=== PATIENT | male | born 1995 | race Caucasian/White ===

== ENCOUNTER 2022-10-05 21:28 | Emergency (ER) | payer OTHER, SELFPAY ==
[2022-10-05] VITALS (7 sets, daily range): BP systolic 125–139; BP diastolic 74–90; PULSE 64–92; RESP 10–31; TEMP 36.8–37.2; O2SAT 69–100; BMI 31.1
[2022-10-05] MEDS: Morphine 4 MG/ML Syringe IV ×2 (21:48→22:12)
--- NOTE | 2022-10-05 21:51 | ED.VIS.LOWEX ---
HPI History of Present Illness Chief Complaint: Lower Extremity Injury Narrative Narrative: Patient presents with injury to his left ankle that he sustained just prior to arrival. He states he was playing basketball, went up for a lay up, and landed incorrectly onto his left ankle. According to EMS, he has obvious deformity and fracture dislocation of his left ankle but still has good pulses and color. He was unable to ambulate. He denies hitting his head or loss of consciousness or other injury. He received 200 mcg of fentanyl intravenously prior to arrival. He denies any knee pain. PFSH PFS Medical History no medical history Home Medications cefadroxil 500 mg capsule 500 mg PO BID #20 caps 10/05/22 [Rx Last Taken Unknown] oxycodone 5 mg tablet 5 mg PO Q6H PRN pain 3 days #12 tabs 10/05/22 [Rx Last Taken Unknown] Allergy/AdvReac Type Severity Reaction Status Date / Time No Known Allergies Allergy Verified 10/05/22 21:48 Surgical History no surgical history Social History Smoking Status: Never smoker ROS ROS ED ROS Narrative Constitutional: No fever, no chills. HEENT: No sore throat. No neck pain. No loss of vision. No rhinorrhea. Cardiovascular: No chest pain. No palpitations. No pedal edema. Respiratory: No cough, no shortness of breath. Abdominal: No abdominal pain. No nausea. No vomiting. Genitourinary: No dysuria. No hematuria. Musculoskeletal: No myalgias. Left ankle pain and deformity. Neurologic: No headaches. No dizziness. No lightheadedness. Skin: No rash. No change in color. Psychiatric: No depression. No anxiety. EXAM Physical Exam Narrative Exam Narrative: Afebrile. Vital signs noted. HEENT: Normocephalic. Atraumatic. PERRL, EOMI. Neck soft and supple. No point tenderness or step off. Cardiovascular: Regular rate and rhythm. No murmurs, rubs, or gallops appreciated. Respiratory: No tachypnea. Lungs clear to auscultation bilaterally. Gastrointestinal: Abdomen soft, nontender, with normoactive bowel sounds. No rebound or guarding. Neurological: Awake. Alert. Nonfocal, nonlateralizing. Skin: No rash. Normal color. No pallor. Musculoskeletal: No pedal edema. Positive dislocation of left ankle with external rotation of left foot. Good capillary refill. Palpable dorsalis pedis pulse. No proximal fibular head tenderness. Const Vital Signs: 10/05/22 21:30 10/05/22 22:19 10/05/22 22:42 Temperature 98.2 F 99 F Temperature Source Temporal Pulse Rate 64 70 Pulse Rate [1 (Initial Baseline)] Pulse Rate [2] Pulse Rate [3] Pulse Rate [4] Pulse Rate [5] Pulse Rate [6] Respiratory Rate 18 31 H Respiratory Rate [1 (Initial Baseline)] Respiratory Rate [2] Respiratory Rate [3] Respiratory Rate [4] Respiratory Rate [5] Respiratory Rate [6] Blood Pressure 125/74 H 138/86 H Blood Pressure [1 (Initial Baseline)] Blood Pressure [3] Blood Pressure [4] Blood Pressure [5] Blood Pressure [6] Blood Pressure Mean 91 Pulse Ox 99 100 Oxygen Delivery Method Room Air Nasal Cannula Oxygen Delivery Method [1 (Initial Baseline)] Oxygen Delivery Method [2] Oxygen Delivery Method [3] Oxygen Delivery Method [4] Oxygen Delivery Method [5] Oxygen Delivery Method [6] Oxygen Flow Rate (L/min) 4 Oxygen Flow Rate (L/min) [3] Oxygen Flow Rate (L/min) [4] Oxygen Flow Rate (L/min) [5] Oxygen Flow Rate (L/min) [6] 10/05/22 22:45 10/05/22 22:48 10/05/22 22:30 Temperature Temperature Source Pulse Rate Pulse Rate [1 (Initial Baseline)] 76 Pulse Rate [2] 70 Pulse Rate [3] 92 Pulse Rate [4] 80 Pulse Rate [5] 70 Pulse Rate [6] 73 Respiratory Rate Respiratory Rate [1 (Initial Baseline)] 19 H Respiratory Rate [2] 22 H Respiratory Rate [3] 10 L Respiratory Rate [4] 21 H Respiratory Rate [5] 22 H Respiratory Rate [6] 20 H Blood Pressure Blood Pressure [1 (Initial Baseline)] 138/88 H Blood Pressure [3] 125/90 H Blood Pressure [4] 125/89 H Blood Pressure [5] 130/86 H Blood Pressure [6] 139/88 H Blood Pressure Mean Pulse Ox Oxygen Delivery Method Room Air Room Air Oxygen Delivery Method [1 (Initial Baseline)] Room Air Oxygen Delivery Method [2] Room Air Oxygen Delivery Method [3] Non-Rebreather Oxygen Delivery Method [4] Non-Rebreather Oxygen Delivery Method [5] Non-Rebreather Oxygen Delivery Method [6] Nasal Cannula Oxygen Flow Rate (L/min) Oxygen Flow Rate (L/min) [3] 15 Oxygen Flow Rate (L/min) [4] 15 Oxygen Flow Rate (L/min) [5] 15 Oxygen Flow Rate (L/min) [6] 4 MDM MDM MDM Narrative Medical decision making narrative: Given the patient's obvious deformity, he requires emergent procedural sedation. He was administered morphine 8 mg intravenously. X-rays were obtained of the left ankle and tibia and fibula. My interpretation shows a fracture of the distal fibula with ankle dislocation of the talus from underneath the tibia. In review of his tibia and fibula, he has the ankle dislocation with distal fibular fracture on my interpretation but proximally, no evidence of fracture. I discussed patient with Dr. Chowdhury, with podiatry. Patient was consented for procedural sedation for closed reduction of his ankle dislocation. A total of 150 mg of propofol was administered. Patient had a transient drop in his pulse ox to the 70s, he was placed on a nonrebreather and jaw thrust maneuver was briefly performed with resultant pulse ox of 100%. Closed reduction was performed and he was placed in a Skip Holguin splint. Patient tolerated the procedure well. He was examined in the splint and has good capillary refill and good coloration of his toes. Dorsalis pedis pulse was checked after reduction prior to splint application and was palpable. Postreduction x-rays of the left ankle were obtained and reviewed by myself. There is good reduction of the tibiotalar dislocation. I read discussed the patient with Dr. Chowdhury. He will be nonweightbearing on his left lower extremity and given a pair of crutches. He did have an abrasion on the anterior aspect of his distal tibia so he will be treated as an open fracture. He was given Duricef and a prescription for Duricef along with a prescription for oxycodone to take every 6 hours. He will call podiatry tomorrow morning for an appointment to be seen for future surgery as an outpatient. Disposition is discharged home in improved and stable condition. Return instructions were reviewed. Radiography Diagnostic Testing: Clinical Impression(s) from Imaging Studies Ankle X-Ray 10/05/22 22:10 IMPRESSION: Distal fibular fracture with presumable injury to third tibiofibular syndesmosis, and tibiotalar subluxation/dislocation. Electronically Signed: Krish Theodore MD at 22:25 EST , Tibia/Fibula X-Ray 10/05/22 22:10 IMPRESSION: Distal injury redemonstrated. The proximal tibia and fibula appear normal. Electronically Signed: Krish Theodore MD at 22:27 EST , Discharge Plan Triage Chief Complaint: Lower Extremity Injury ED Provider: Victorino Groves Dx/Rx/DC Orders Clinical Impression: Dislocation of ankle, left, open, Fracture of distal end of fibula Instructions: ED Ankle Dislocation (Adult), ED Procedural Sedation, (Adult), ED Ankle Fracture, Distal Fibula Prescriptions: New cefadroxil 500 mg capsule 500 mg PO BID Qty: 20 0RF oxycodone 5 mg tablet 5 mg PO Q6H PRN (Reason: pain) 3 Days Qty: 12 0RF Primary Care Provider: Care Physician,No Primary Referrals: Arpan Chowdhury DPM [Med Staff - Active Staff] - 1 Day Care Physician,No Primary [Primary Care Provider] - Activity Restrictions/Additional Instructions: Do not bear any weight on your left foot. Continue ice and elevation at home. Take your antibiotics as directed. Call Dr. Chowdhury with podiatry tomorrow for an appointment to be seen in the next few days, or when he specifies. Disposition Disposition: Home, Self Care
--- NOTE | 2022-10-05 22:10 | RAD_ITS ---
INDICATION: trauma EXAMINATION/TECHNIQUE: X-RAY - LEFT XR Ankle Min 3 Views 3 VIEWS COMPARISON: None. FINDINGS: SOFT TISSUES: Lateral soft tissue swelling. No radiopaque foreign body. BONES/JOINTS: Distal fibular diaphysis comminuted fracture with a butterfly fragment and dorsal angulation of the distal fragment. There is dorsal and lateral dislocation of the distal fibula and talus with respect to the tibia. No sclerotic or destructive changes observed. RAD/Ankle min 3 Views IMPRESSION: Distal fibular fracture with presumable injury to third tibiofibular syndesmosis, and tibiotalar subluxation/dislocation. Electronically Signed: Krish Theodore MD at 22:25 EST ,
--- NOTE | 2022-10-05 22:10 | RAD_ITS ---
INDICATION: trauma EXAMINATION/TECHNIQUE: X-RAY - LEFT XR Tibia/Fibula 2 Views 4 VIEWS COMPARISON: None. FINDINGS: SOFT TISSUES: No radiopaque foreign body. BONES/JOINTS: Distal fibular fracture and tibiotalar dislocation as detailed on concurrent ankle x-ray. Normal proximal alignment. RAD/Tibia & Fibula 2 Views IMPRESSION: Distal injury redemonstrated. The proximal tibia and fibula appear normal. Electronically Signed: Krish Theodore MD at 22:27 EST ,
[2022-10-05] MEDS: Propofol 200 MG/20 ML Vial IV BOLUS (22:50)
--- NOTE | 2022-10-05 22:55 | RAD_ITS ---
INDICATION: post reduction EXAMINATION/TECHNIQUE: X-RAY - LEFT XR Ankle Min 3 Views 3 VIEWS COMPARISON: One hour earlier RAD/Ankle min 3 Views IMPRESSION: Near-anatomic alignment following closed reduction and casting of distal fibular fracture and tibiofibular talar dislocation. Electronically Signed: Krish Theodore MD at 23:26 EST ,
[2022-10-05] MEDS: Cefadroxil 500 MG CAPSULE PO (23:34)
== END 2022-10-06 00:23 | disposition home or self-care (01) ==
PROVIDERS: Emergency Provider Emergency Medicine; Visit Provider Emergency Medicine
DX: S82.832B Other fracture of upper and lower end of left fibula, initial encounter for open fracture type I or II (principal); S93.05XA Dislocation of left ankle joint, initial encounter; X58.XXXA Exposure to other specified factors, initial encounter; Y93.67 Activity, basketball
CPT/HCPCS: 27786; 29515; 73590; 73610; 96374; 96376; 99285; A4216

== ENCOUNTER → 2022-10-06 | Outpatient (CLI) | payer OTHER, SELFPAY ==
[2022-10-06 18:07] LABS: Absolute Lymphocyte Count 1.43 X10^3/uL (0.83-4.51); Basophil# 0.02 X10^3/uL; Basophil% 0.2 % (0-1); Eosinophil# 0.02 X10^3/uL; Eosinophils% 0.2 % (0-5); Hematocrit 44.6 % (40-54); Hemoglobin 14.6 g/dL (13.0-16.5); Lymphocyte # 1.43 X10^3/ul (0.83-4.51); Lymphocyte % 11.4 % (19-41); Mean Corp Hgb Conc 32.7 g/dL (32-36); Mean Corpuscular Hgb 28.2 pg (27.0-32.0); Mean Corpuscular Volume 86.1 fL (80-94); Mean Platelet Vol. 10.2 fl (6.2-12.0); Monocyte# 1.12 X10^3/uL; Monocyte% 8.9 % (0-10); NRBC Flagged by Analyzer 0 % (0-5); Neutrophil # 9.95 X10^3/uL (2.7-7.7); Neutrophil % 79.1 % (47-70); Platelet Count 316 K/mm3 (150-450); RBC Distribution Width CV 14.3 % (11.6-14.6); RBC Distribution Width SD 45.4 fl (35.1-43.9); Red Blood Count 5.18 M/mm3 (4.6-6.2); White Blood Count 12.6 K/mm3 (4.4-11.0)
[2022-10-06 18:45] LABS: ALB/GLOB Ratio 1.2 RATIO (0.9-2.4); AST(SGOT) 65 U/L (15-37); Alanine Aminotransfer ALT/SGPT 30 U/L (16-61); Albumin, Serum 4.4 g/dL (3.2-5.0); Alkaline Phosphatase 68 U/L (45-117); Anion Gap 9 (5-15); BUN 15 mg/dL (7-18); BUN/Creat Ratio 10.8 RATIO (10-20); Calcium,Total 9.4 mg/dL (8.5-10.1); Chloride 106 mmol/L (98-107); Creatinine, Serum 1.39 mg/dL (0.70-1.30); EST Glomerular Filtration Rate 64 mL/min (>60); Est Glom Filt Rate - Afr Amer 77 mL/min (>60); Globulin 3.6 g/dL (2.2-4.2); Glucose 113 mg/dL (74-106); Potassium 3.8 mmol/L (3.5-5.1); Sodium Level 139 mmol/L (136-145)
== END | disposition home or self-care (01) ==
LOC: MTLAB 16:51
PROVIDERS: PCP Family Medicine; Referring Provider Family Medicine; Visit Provider Family Medicine
DX: S82.892A Other fracture of left lower leg, initial encounter for closed fracture (principal)
CPT/HCPCS: 36415; 80053; 85025

== ENCOUNTER 2022-10-11 09:44 | Day surgery (SDC) | payer SELFPAY, OTHER ==
[2022-10-11] VITALS (8 sets, daily range): BP systolic 126–133; BP diastolic 69–86; PULSE 72–86; RESP 16–18; TEMP 36.5–36.9; O2SAT 96–99; BMI 31.6
[2022-10-11] MEDS: 0.9% Normal Saline 1,000 ML 80 ML IV (10:14)
--- NOTE | 2022-10-11 10:30 | RAD_ITS ---
STUDY: X-RAY - LEFT ANKLE REASON FOR EXAM: Male, 27 years old. ORIF, ankle with syndesmosis and deltoid ligament repair TECHNIQUE: 3 view(s) of the ankle. COMPARISON: None. FINDINGS: Intraoperative images provided for ORIF of the distal fibular fracture. RAD/Ankle min 3 Views IMPRESSION: Intraoperative imaging provided for ORIF of the distal fibular fracture. Electronically Signed: Flex Restrepo MD at 15:09 EST ,
--- NOTE | 2022-10-11 10:53 | DCINST_ITS ---
Discharge Instructions Diet Discharge Diet: No restrictions Activity Discharge Activity: May Shower (Utilize cast bag to left lower extremity to keep dressings clean, dry, and intact) and Use Crutches (Remain nonweightbearing to left lower extremity with use of crutches) Weight Bearing Status: No weight bearing (Remain nonweightbearing to left lower extremity with use of crutches) Keep extremity elevated above heart level: Left Leg (Elevate left lower extremity at all times of rest to control postoperative edema) Dressing / Incision Call your doctor if your incision/area has: Increased Pain/ Swelling Call your doctor if you observe: Fever of 101 or Higher, Shortness of breath, Chest pain, Calf discomfort and Uncontrolled pain Change Dressing in: leave in place till F/U (Physician will change dressings at first postoperative visit) Remove Dressing in: do not remove dressing (Physician will change dressings at first postoperative visit) Cleanse incision/area with: Do not get Incision Wet (Utilized cast bag covering left lower extremity when showering) and Keep Dressing Clean & Dry (Please keep dressings clean, dry, and intact to the left lower extremity) Follow Up Care Please Follow Up With: Arpan Chowdhury DPM When: Patient is scheduled for first postoperative visit in office Test Results: Test results from this visit will be discussed in further detail at your follow- up appointment, if applicable. Discharge Plan Admission Attending Provider: Arpan Chowdhury Primary Care Provider: Krish Paiz Discharge Orders/Prescriptions Prescriptions: New oxycodone-acetaminophen 5-325 mg tablet 1 tab PO Q6H PRN (Reason: pain) 7 Days Qty: 28 0RF doxycycline hyclate 100 mg capsule 100 mg PO BID Qty: 20 0RF aspirin 325 mg capsule 325 mg PO DAILY Qty: 20 0RF No Action cefadroxil 500 mg capsule 500 mg PO BID Qty: 20 0RF oxycodone 5 mg tablet 5 mg PO Q6H PRN (Reason: pain) 3 Days Qty: 12 0RF Referrals / Follow Up: Krish Paiz MD [Primary Care Provider] - Disposition Disposition (needs filled in before D/C Order can be placed): Home, Self Care
[2022-10-11] MEDS: Cefazolin 2 GM in 0.9% Normal Saline 100 ML IV (11:38)
--- NOTE | 2022-10-11 15:35 | OP.PCM_ITS ---
Problems Associated Problem List Diagnoses (1) Tear of deltoid ligament of left ankle: (2) Displaced bimalleolar fracture of left ankle: (3) Other acute postprocedural pain: Report of Operation Date of Procedure: 10/11/22 Pre-Operative Diagnosis: 1. Bimalleolar equivalent Ankle Fracture, Left Ankle 2. Syndesmotic Rupture/Instability of Left Ankle 3. Deltoid Ligament Rupture Left Ankle Post-Operative Diagnosis: 1. Bimalleolar equivalent Ankle Fracture, Left Ankle 2. Syndesmotic Rupture/Instability of Left Ankle 3. Deltoid Ligament Rupture Left Ankle Surgery/Procedure Performed:: 1. ORIF Left Ankle 2. Syndesmotic Repair with Tightrope, Left Ankle 3. Primary Repair of Deltoid Ligament, Left Ankle Description of Surgical Findings:: See operative note for findings Surgeon: Arpan Chowdhury test engineer: Kaleigh Pelletier DPM PGY-3 Type of Anesthesia: General/Regional (Popliteal Block, Left Leg) Specimen's removed: None Drains: None Estimated Blood Loss (mL): <15mL Description of Procedure: HPI/Indication: Patient is a 27-year-old male who presented to the [facility] ED late evening on 10/06/2022 with complaint of left ankle pain and inability to bear weight. States that he was playing basketball, went up for a lay up, and landed incorrectly onto the left ankle. He was seen by EMS who states he had obvious deformity and fracture with dislocation of the left ankle but had intact pedal pulses and adequate color. Patient was transported to the [place] ED where radiographs were obtained demonstrating a displaced bimalleolar equivalent fracture of the left ankle involving fracture of the distal fibula with rupture of the deltoid ligament and syndesmotic instability apparent on radiograph. As the automotive product engineer on-call I was consulted for fracture care and management. Patient underwent closed reduction in the ED and postoperative films were obtained indicating near anatomic reduction. Patient was seen in office 10/07/2022 for surgical discussion pertaining to ORIF of the left ankle with syndesmotic repair and deltoid ligament repair. I discussed with the patient and his the procedure in detail. I discussed other treatment options in detail. I discussed that given the nature of his fracture with dislocation and significant ligament instability that surgical intervention would be required. They are in agreement with this. Following discussion of our procedure I discussed benefits of the procedure, and risks of the procedure. Discussed that the risks are not limited to: Pain, continued pain, complex regional pain syndrome, neuritis/nerve injury/numbness, edema, delayed healing/nonhealing, scarring, poor cosmetic result, overcorrection/under correction, malunion, nonunion, dehiscence, infection, need for additional surgery/correction, hardware failure, hardware irritation, postoperative arthritis, stiffness/reduced range of motion, blood clot, allergic reaction, difficulty with ambulation, difficulty wearing shoes, loss of function, loss of limb, and loss of life. Patient voices understanding of these risks. Patient able to repeat these back. All questions were answered to the patient's satisfaction. Consent forms were signed/obtained at the patient's own free will. Patient was scheduled to undergo ORIF of the left ankle with syndesmotic repair and deltoid ligament repair at [facility] on 10/11/2022. Patient was seen prior to surgical intervention and all diagnostic data and H&P was reviewed and signed. No changes noted. Operative limb was signed prior to entering the OR. Procedure: Under mild sedation patient brought in the operating placed on the table in the supine position. Following induction of general anesthesia a pneumatic thigh tourniquet was placed about the patient's left thigh. Patient underwent popliteal block by anesthesia team. A bump was placed under the left hip and left leg. The left leg was scrubbed, prepped, and draped in the usual aseptic manner. Next, the left leg where an Esmarch bandage was utilized to exsanguinate the foot/leg and the leg was elevated and the pneumatic tourniquet was inflated to 300 mmHg. At this time attention was directed to the left leg/ankle where fluoroscopic images were utilized in multiple views for fracture location and incision placement. Next a linear incision was made overlying the fibula utilizing a #15 blade. Incision was deepened via sharp and blunt dissection. Care was taken to identify and retract all vital neurovascular structures. Incision was deepened to the level of the periosteum where the fracture site was identified. Fracture was exposed at the operative field and the fracture fragments underwent debridement removing small portion of bone as well as hematoma from the fracture site. Site was then flushed with copious amounts of normal sterile saline. Fracture was then reduced utilizing pointed reduction clamp. Fluoroscopic imaging utilized to confirm reduction of the fracture fragment in multiple views. Next, following AO principles, a 2.4 mm x 22mm interfragmentary screw was placed across the fracture site. Next an Arthrex 8 hole titanium locking tubular plate was applied to the lateral aspect of the fibula and temporarily fixated with 2 olive wires. Position of the plate was confirmed multiple fluoroscopic views and following AO principles plate was fixated with 3.5 mm titanium locking screws x3 (14 mm, 16 mm, 16 mm) and one 3.5 mm x16mm titanium cortical screw. Following plating syndesmotic instability was tested and confirmed utilizing both hook test and external rotation test. Next at the most distal hole of the lateral plate following AO principle and Arthrex TI tight rope XP was placed across the syndesmosis. Following application of the tight rope the syndesmosis again was tested utilizing both a hook test and external rotation test and the syndesmosis was deemed reduced with excellent fixation and no noted instability. Site was then copiously irrigated with normal sterile saline. Next, attention was directed to the medial aspect of the left ankle where a linear incision was made slightly anterior to the medial malleolus overlying the region of the deltoid ligament and deepened via sharp and blunt dissection. Care was taken to identify and retract all vital neurovascular structures. The deep deltoid ligament was visualized with partial tearing noted. Deltoid ligament was repaired utilizing 0 Vicryl sutures in a pants over vest fashion. Deltoid ligament was noted to be repaired and secured. Next under live fluoroscopy no medial instability or syndesmotic instability was noted. Fluoroscopic imaging was then obtained in multiple views confirming final fixation of the left ankle and deemed excellent. Medial site overlying deltoid ligament repair was flushed with copious amounts of normal sterile saline. At this time the pneumatic thigh tourniquet was deflated and a prompt hyperemic response was noted to the digits of the left foot. Tourniquet was deflated to evaluate for bleeders prior to closure, none were determined. Medial incision deep structures were closed with a 3-0 Vicryl, subcutaneous layer closed with a 4-0 Monocryl and skin was reapproximated with a 3-0 Prolene. Lateral incision deep structures were closed with a 3-0 Vicryl, subcutaneous layer closed with 4- 0 Monocryl, and skin reapproximated with a 3-0 Prolene. Incision sites dressed with Betadine soaked Adaptic, 4 x 4 gauze, ABD padding, Kerlix x2, Webril, 4 inch Luiz and 6 inch Luiz forming a modified Holguin compression splint. Well molded and well-padded sugar-tong cast applied to the left lower extremity and anchored with a 4 inch Luiz and 6 inch Luiz wrap. Patient tolerated the procedure and anesthesia well. Patient was transported the PACU with vital signs stable and vascular status intact to the left foot. Immediate postoperative films were ordered and obtained in PACU, these were reviewed prior to leaving. Postoperative instructions were discussed and given to . Patient instructed to strictly remain nonweightbearing to the left lower extremity by use of knee scooter and crutches. He is to keep dressings clean, dry, and intact to the left foot. He will follow-up with me in office for continued postoperative care. Grafts/Implants Used: Arthrex Neutralization Plate, screws x 4, 2.4mm Interfrag screw, Tight Rope Complications None Admit VTE Documentation VTE Present on Admission: No VTE Mechan Device Prophylaxis: SCD's VTE Pharm Prophylaxis ordered?: Yes
--- NOTE | 2022-10-11 15:40 | RAD_ITS ---
EXAM: XR LEFT ANKLE COMPLETE, 3 OR MORE VIEWS CLINICAL INDICATION: Postoperative TECHNIQUE: Frontal, lateral and oblique views of the left ankle. This report was created using [employer] report generation technology. COMPARISON: 10.05.22 FINDINGS: BONES/JOINTS: Fine osseous detail is obscured by the overlying cast. Tibiofibular ligament repair. Successful ORIF. There is a metal sideplate transfixing the distal fibular fracture. There are cortical screws holding the plate in place. Preservation of the joint space. No sclerotic or destructive changes observed. SOFT TISSUES: Unremarkable. No soft tissue swelling or gas. No radiopaque foreign body. RAD/Ankle min 3 Views IMPRESSION: Successful ORIF. Electronically Signed: Renaldo Phoenix MD at 17:03 EST Reading Location ID and State: [facility] / [place] , Service support ,
[2022-10-11] MEDS: oxyCODONE 5 MG Tablet 10 MG PO (17:15)
== END 2022-10-11 18:10 | disposition home or self-care (01) ==
LOC: SDC 09:45 → AC 09:46
PROVIDERS: PCP Family Medicine; Referring Provider Student in an Organized Health Care Education/Training Program; Visit Provider Student in an Organized Health Care Education/Training Program
PROC: (CPT 27814; principal; 2022-10-11 11:10)
DX: S82.842A Displaced bimalleolar fracture of left lower leg, initial encounter for closed fracture (principal); M25.372 Other instability, left ankle; G89.18 Other acute postprocedural pain; S93.422A Sprain of deltoid ligament of left ankle, initial encounter; Z87.19 Personal history of other diseases of the digestive system; Z87.891 Personal history of nicotine dependence; S93.01XA Subluxation of right ankle joint, initial encounter; M79.662 Pain in left lower leg; W01.0XXA Fall on same level from slipping, tripping and stumbling without subsequent striking against object, initial encounter; Y93.67 Activity, basketball; Y92.89 Other specified places as the place of occurrence of the external cause
CPT/HCPCS: 27814; 27695; 64445; 73610; 76000; C1713; J7030; J2405

== ENCOUNTER 2023-01-02 16:43 | Outpatient (RCR) | payer OTHER, SELFPAY | END 2023-01-02 19:00 | disposition home or self-care (01) | LOC: PT 16:43 | PROVIDERS: PCP Family Medicine; Referring Provider Student in an Organized Health Care Education/Training Program; Visit Provider Student in an Organized Health Care Education/Training Program | DX: S82.843D Displaced bimalleolar fracture of unspecified lower leg, subsequent encounter for closed fracture with routine healing (principal) ==